=== PATIENT | female | born 1995 | race Caucasian/White ===

== ENCOUNTER 2020-07-06 22:39 | Emergency (ER) | payer OTHER ==
[~2020-07-06] VITALS: Ht 167.7 cm; Wt 69.6 kg
[2020-07-06 23:17] LABS: BILIRUBIN,URINE NEGATIVE (NEGATIVE); CLARITY,URINE CLEAR; COLOR,URINE YELLOW; GLUCOSE, URINE (UA) NEGATIVE (NEGATIVE); KETONES,URINE NEGATIVE (NEGATIVE); LEUKOCYTE ESTERASE ,URINE NEGATIVE (NEGATIVE); NITRITE,URINE NEGATIVE (NEGATIVE); PH,URINE 7.5 (5-9); PROTEIN,URINE NEGATIVE (NEGATIVE)
[2020-07-06 23:29] LABS: BACTERIA,URINE NEGATIVE /HPF
[2020-07-06 23:32] LABS: AMPHETAMINE SCREEN, URINE NEGATIVE (NEGATIVE); BARBITURATE SCREEN URINE NEGATIVE (NEGATIVE); BENZODIAZEPINES SCREEN URINE NEGATIVE (NEGATIVE); CANNABINOID SCREEN, URINE NEGATIVE (NEGATIVE); COCAINE SCREEN URINE NEGATIVE (NEGATIVE); METHADONE STAT NEGATIVE (NEGATIVE); METHAMPHETAMINE SCREEN URINE S NEGATIVE (NEGATIVE); OPIATE SCREEN URINE NEGATIVE (NEGATIVE); OXYCODONE STAT NEGATIVE (NEGATIVE); PROPOXYPHENE STAT NEGATIVE (NEGATIVE); TRICYCLIC ANTIDEPRESSANTS SCRE NEGATIVE (NEGATIVE)
[2020-07-06 23:34] LABS: BASOPHILS % (AUTO) 1 % (0-10); EOSINOPHILS # (AUTO) 0.1 10^3/uL (0.0-0.3); EOSINOPHILS % (AUTO) 1 % (0-10); HEMATOCRIT 39 % (35-52); HEMOGLOBIN 13.4 g/dL (11.5-16.0); LYMPHOCYTES # (AUTO) 3.2 10^3/uL (1.0-4.0); LYMPHOCYTES % (AUTO) 41 % (12-44); MEAN CORPUSCULAR HEMOGLOBIN 29 pg (25-34); MEAN CORPUSCULAR HGB CONC 34 g/dL (32-36); MEAN CORPUSCULAR VOLUME 85 fL (80-99); MEAN PLATELET VOLUME 9.5 fL (9.0-12.2); MONOCYTES # (AUTO) 0.5 10^3/uL (0.0-1.0); MONOCYTES % (AUTO) 7 % (0-12); NEUTROPHILS % (AUTO) 50 % (42-75); PLATELET COUNT 330 10^3/uL (130-400); WHITE BLOOD COUNT 7.9 10^3/uL (4.3-11.0)
[2020-07-06 23:41] LABS: ALBUMIN 4.2 GM/DL (3.2-4.5); CHLORIDE 106 MMOL/L (98-107); POTASSIUM 3.7 MMOL/L (3.6-5.0); SODIUM 141 MMOL/L (135-145)
[2020-07-06 23:42] LABS: CALCIUM 9.3 MG/DL (8.5-10.1)
[2020-07-06 23:44] LABS: GLUCOSE 96 MG/DL (70-105); TOTAL PROTEIN 7.4 GM/DL (6.4-8.2)
[2020-07-06 23:45] LABS: BILIRUBIN,TOTAL 0.5 MG/DL (0.1-1.0); CARBON DIOXIDE 23 MMOL/L (21-32)
[2020-07-06 23:47] LABS: ALKALINE PHOSPHATASE 40 U/L (40-136); CREATININE SERUM 0.82 MG/DL (0.60-1.30); GFR ESTIMATED > 60
[2020-07-06 23:48] LABS: BUN/CREATININE RATIO 13
[2020-07-06 23:50] LABS: ALANINE AMINOTRANSFERASE 15 U/L (0-55)
[2020-07-06 23:51] LABS: MAGNESIUM 1.7 MG/DL (1.6-2.4)
[2020-07-07 00:02] LABS: ERYTHROCYTE SEDIMENTATION RATE 9 MM/HR (0-20)
--- NOTE | 2020-07-07 00:34 | ED Headache ---
General Chief Complaint: Eye Problems Stated Complaint: VISION ISSUES/LIGHT FLASHING Nursing Triage Note: PATIENT STATES THAT SHE HAS BEEN DRIVING ALL DAY AND AT 1900 SHE BEGAN TO EXPERIENCE A "KALEIDOSCOPE OF COLORS INTERMITTENTLY" IN THE UPPER LEFT CORNER OF HER VISION IN BOTH EYES. IN TOTAL IT HAS OCCURRED THREE TIMES AND SHE ALSO HAS A HEADACHE WELL, WHICH SHE TYPICALLY DOESN'T HAVE. Nursing Sepsis Screen: No Definite Risk Source: patient History of Present Illness Date Seen by Provider: July 06, 2020 Time Seen by Provider: 23:00 Initial Comments PT ARRIVES VIA POV WITH BOYFRIEND PT STATES THAT AROUND 0 WHILE DRIVING, SHE BEGAN HAVING "SOME WEIRD VISION FLASHES AND SOME HEADACHES" STATES SHE HAS BEEN DRIVING ALL DAY--FOR AT LEAST 10 HOURS--DRIVING FROM [place] TO HOME IN [place] STATES IT IS "ONE SPOT OF COLORED PATTERN MOVING" THEN SHE WILL GET A MILD HEADACHE AFTER THE "FLASH" OF COLORED PATTERN THIS SPOT IS IN THE UPPER LEFT CORNER OF BOTH EYES. STATES THIS HAS HAPPENED ONCE AN HOUR FOR FOUR HOURS, BUT HAS NOT HAD ANY SINCE 2199 TONIGHT STATES HEADACHE IS "FLUCTUATING" AND IS GONE NOW STATES THESE EPISODES ARE VERY BRIEF, LASTING A FEW SECONDS TO A MINUTE HAS HAD SLIGHT NAUSEA, NO VOMITING HAD A LITTLE DIZZINESS FROM [id number], BUT NOT NOW NO FEVER OR RECENT ILLNESS NO COUGH OR URI SYMPTOMS NO NECK STIFFNESS OR PAIN NO PARESTHESIAS OR MOTOR DEFICITS PT DOES NOT HAVE A HISTORY OF EYE/VISION PROBLEMS AND DOES NOT WEAR GLASSES OR CONTACTS PT DOES NOT HAVE A HISTORY OF FREQUENT HEADACHES NO CHRONIC MEDICAL ILLNESS AND DOES NOT TAKE ANY MEDICATIONS ON DAILY BASIS HAS NOT TAKEN ANYTHING FOR HEADACHE PT DOES STATE THAT FOR THE LAST 1-2 WEEKS, SHE HAS BEEN DRINKING ALOT MORE A LCOHOL THAN NORMAL--NORMALLY DRINKS A COUPLE OF DRINKS PER WEEK, AND FOR THE LAST 1-2 WEEKS, SHE HAS BEEN DRINKING " A COUPLE" OF DRINKS EVERY DAY. STATES SHE HAS NOT HAD ANY ALCOHOL TODAY STATES SHE HAS NOT HAD MUCH FLUID INTAKE IN GENERAL TODAY DUE TO DRIVING ALL DAY. LMP 06/09/20. NORMAL. NO CONTROL. PT HAS LIVED IN [place] FOR THE LAST 2 YEARS, ORIGINALLY FROM [place] Allergies and Home Medications Allergies Coded Allergies: No Known Drug Allergies (Unverified , 07/06/20) Patient Home Medication List Home Medication List Reviewed: Yes Review of Systems Review of Systems Constitutional: see HPI; No chills, No diaphoresis; dizziness; No fever, No malaise, No weakness Eyes: See HPI; Denies Blindness, Denies Blurred Vision, Denies Decreased Acuity, Denies Pain, Denies Photophobia, Denies Shadows; Vision Changes Ears, Nose, Mouth, Throat: no symptoms reported Respiratory: no symptoms reported Cardiovascular: no symptoms reported Gastrointestinal: see HPI; No abdominal pain, No diarrhea; nausea; No vomiting Genitourinary: no symptoms reported LMP: Jun 09, 2020 Musculoskeletal: no symptoms reported; No neck pain Psychiatric/Neurological: See HPI, Headache; Denies Numbness, Denies Paresthesia, Denies Seizure, Denies Tingling, Denies Tremors, Denies Weakness Past [id number] Hx Past Med/Social Hx: Reviewed and Corrections made Patient Social History Alcohol Use: Regular Use (COUPLE OF TIMES A WEEK) Drug of Choice: DENIES Smoking Status: Never a Smoker Recent Infectious Disease Expo: No Past Medical History Surgeries: Yes Tonsillectomy Respiratory: No Cardiac: No Neurological: No : No Reproductive Disorders: No Genitourinary: No Gastrointestinal: No Musculoskeletal: No Endocrine: No HEENT: No Cancer: No Psychosocial: No Integumentary: No Blood Disorders: No Physical Exam Vital Signs Vital Signs - First Documented 07/06/20 07/07/20 22:51 00:53 Temp 36.8 Pulse 95 Resp 20 B/P (MAP) 131/88 (102) Pulse Ox 99 O2 Delivery Room Air Capillary Refill : Less Than 3 Seconds Height, Weight, BMI Height: '" Weight: lbs. oz. kg; 24.00 BMI Method: General Appearance: WD/WN, no apparent distress, other (SMILING, TEXTING ON ARRIVAL. DOES NOT APPEAR TO BE IN ANY DISCOMFORT OR DISTRESS, OR HAVING DIFFICULTY SEEING ANYTHING ON HER PHONE) HEENT: PERRL/EOMI, normal ENT inspection, TMs normal, pharynx normal Neck: non-tender, full range of motion, supple, normal inspection Cardiovascular: regular rate, rhythm, no murmur Respiratory: normal breath sounds Gastrointestinal: non tender, soft Back: normal inspection Extremities: normal inspection Psychiatric: alert, oriented x 3 Crainal Nerves: normal hearing, normal speech, PERRL Coordination/Gait: normal gait Motor/Sensory: no motor deficit, no sensory deficit Skin: normal color, warm/dry Progress/Results/Core Measures Results/Orders Lab Results Laboratory Tests Test 07/06/20 23:10 07/06/20 23:26 Range/Units Urine Color YELLOW Urine Clarity CLEAR Urine pH 7.5 5-9 Urine Specific [place] 1.020 1.016-1.022 Urine Protein NEGATIVE NEGATIVE Urine Glucose (UA) NEGATIVE NEGATIVE Urine Ketones NEGATIVE NEGATIVE Urine Nitrite NEGATIVE NEGATIVE Urine Bilirubin NEGATIVE NEGATIVE Urine Urobilinogen 0.2 < = 1.0 MG/DL Urine Leukocyte Esterase NEGATIVE NEGATIVE Urine RBC (Auto) NEGATIVE NEGATIVE Urine RBC NONE /HPF Urine WBC NONE /HPF Urine Squamous Epithelial Cells NONE /HPF Urine Crystals NONE /LPF Urine Bacteria NEGATIVE /HPF Urine Casts NONE /LPF Urine Mucus NEGATIVE /LPF Urine Culture Indicated NO Urine Opiates Screen NEGATIVE NEGATIVE Urine Oxycodone Screen NEGATIVE NEGATIVE Urine Methadone Screen NEGATIVE NEGATIVE Urine Propoxyphene Screen NEGATIVE NEGATIVE Urine Barbiturates Screen NEGATIVE NEGATIVE Ur Tricyclic Antidepressants Screen NEGATIVE NEGATIVE Urine Phencyclidine Screen NEGATIVE NEGATIVE Urine Amphetamines Screen NEGATIVE NEGATIVE Urine Methamphetamines Screen NEGATIVE NEGATIVE Urine Benzodiazepines Screen NEGATIVE NEGATIVE Urine Cocaine Screen NEGATIVE NEGATIVE Urine Cannabinoids Screen NEGATIVE NEGATIVE White Blood Count 7.9 4.3-11.0 10^3/uL Red Blood Count 4.57 3.80-5.11 10^6/uL Hemoglobin 13.4 11.5-16.0 g/dL Hematocrit 39 35-52 % Mean Corpuscular Volume 85 80-99 fL Mean Corpuscular Hemoglobin 29 25-34 pg Mean Corpuscular Hemoglobin Concent 34 32-36 g/dL Red Cell Distribution Width 13.9 10.0-14.5 % Platelet Count 330 130-400 10^3/uL Mean Platelet Volume 9.5 9.0-12.2 fL Immature Granulocyte % (Auto) 0 % Neutrophils (%) (Auto) 50 42-75 % Lymphocytes (%) (Auto) 41 12-44 % Monocytes (%) (Auto) 7 0-12 % Eosinophils (%) (Auto) 1 0-10 % Basophils (%) (Auto) 1 0-10 % Neutrophils # (Auto) 4.0 1.8-7.8 10^3/uL Lymphocytes # (Auto) 3.2 1.0-4.0 10^3/uL Monocytes # (Auto) 0.5 0.0-1.0 10^3/uL Eosinophils # (Auto) 0.1 0.0-0.3 10^3/uL Basophils # (Auto) 0.0 0.0-0.1 10^3/uL Immature Granulocyte # (Auto) 0.0 0.0-0.1 10^3/uL Erythrocyte Sedimentation Rate 9 0-20 MM/HR Sodium Level 141 135-145 MMOL/L Potassium Level 3.7 3.6-5.0 MMOL/L Chloride Level 106 98-107 MMOL/L Carbon Dioxide Level 23 21-32 MMOL/L Anion Gap 12 5-14 MMOL/L Blood Urea Nitrogen 11 7-18 MG/DL Creatinine 0.82 0.60-1.30 MG/DL Estimat Glomerular Filtration Rate > 60 BUN/Creatinine Ratio 13 Glucose Level 96 70-105 MG/DL Calcium Level 9.3 8.5-10.1 MG/DL Corrected Calcium 9.1 8.5-10.1 MG/DL Magnesium Level 1.7 1.6-2.4 MG/DL Total Bilirubin 0.5 0.1-1.0 MG/DL Aspartate Amino Transf (AST/SGOT) 20 5-34 U/L Alanine Aminotransferase (ALT/SGPT) 15 0-55 U/L Alkaline Phosphatase 40 40-136 U/L C-Reactive Protein High Sensitivity 0.14 0.00-0.50 MG/DL Total Protein 7.4 6.4-8.2 GM/DL Albumin 4.2 3.2-4.5 GM/DL Serum Alcohol < 10 <10 MG/DL My Orders Orders - ELANA DEJESUS DO Ed Iv/Invasive Line Start (07/06/20 23:07) Urine Bedside (07/06/20 23:07) Ct Head Wo-R/O Stroke (07/06/20 23:07) Alcohol (07/06/20 23:07) Cbc With Automated Diff (07/06/20 23:07) Comprehensive Metabolic Panel (07/06/20 23:07) Hs C Reactive Protein (07/06/20 23:07) Drug Screen Stat (Urine) (07/06/20 23:07) Magnesium (07/06/20 23:07) Ua Culture If Indicated (07/06/20 23:07) Erythrocyte Sedimentation Rate (07/06/20 23:07) Vital Signs/I&O 07/06/20 07/07/20 22:51 00:53 Temp 36.8 36.6 Pulse 95 88 Resp 20 18 B/P (MAP) 131/88 (102) 128/80 Pulse Ox 99 O2 Delivery Room Air Blood Pressure Mean: 102 Progress Progress Note : Progress Note NO SYMPTOMS OF ANY KIND DURING ER STAY Diagnostic Imaging Comments CT HEAD--NO ACUTE PROCESS, PER [facility] VIA FAX AT 0024 Reviewed: Reviewed by Me Departure Impression Primary Impression: TRANSIENT VISION CHANGE Additional Impression: TRANSIENT HEADACHE Disposition: HOME, SELF-CARE Condition: Stable Departure-Patient Inst. Decision time for Depature: 00:30 Referrals: NO,LOCAL PHYSICIAN (PCP/Family) Primary Care Physician Patient Instructions: Headache, Adult (DC), Migraines (DC) Add. Discharge Instructions: TYLENOL AND MOTRIN NEEDED FOR HEADACHE LOTS OF CLEAR LIQUIDS WEAR SUNGLASSES WHEN DRIVING OR OUTSIDE FOLLOW UP WITH YOUR DR NEXT WEEK FOR FURTHER CARE, GO TO NEAREST ER IF YOUR SYMPTOMS RETURN/WORSEN All discharge instructions reviewed with patient and/or family. Voiced understanding. ELANA DEJESUS DO July 07, 2020 00:34
[2020-07-07 00:53] VITALS: BP 128/80
--- NOTE | 2020-07-07 08:08 | Diagnostic Imaging Report ---
PROCEDURE: CT head wo r/o stroke. TECHNIQUE: Multiple contiguous axial images were obtained through the brain without the use of intravenous contrast. Auto Exposure Controls were utilized during the CT exam to meet ALARA standards for radiation dose reduction. INDICATION: Headache after driving all day. COMPARISON: None. FINDINGS: No intracranial hemorrhage, mass effect, hydrocephalus or extra-axial fluid collections. No CT evidence of territorial infarction. Osseous structures are intact. Paranasal sinuses and mastoids are clear where seen. IMPRESSION: No acute intracranial CT findings. Agree with preliminary interpretation. Dictated by: Dictated on workstation # [id number]
== END 2020-07-07 00:56 | disposition home or self-care (01) ==
LOC: ER 22:41
DX: R51.9 Headache, unspecified (principal); H53.129 Transient visual loss, unspecified eye
CPT/HCPCS: 70450; 80053; 80306; 81000; 83735; 84703; 85025; 85652; 86141; 99284; G0480; 36415; 80320